=== PATIENT | male | born 1965 | race Caucasian/White ===

== ENCOUNTER 2022-08-17 15:15 | Outpatient (CLI) | payer BC, OTHER | END 2022-08-17 15:16 | disposition home or self-care (01) | LOC: CSHMRI 15:15 | PROVIDERS: ATTEND Orthopaedic Surgery | DX: M75.81 Other shoulder lesions, right shoulder (principal); S43.431A Superior glenoid labrum lesion of right shoulder, initial encounter ==

== ENCOUNTER 2024-06-17 09:00 | Outpatient (CLI) | payer BC, OTHER | END 2024-06-17 09:01 | disposition home or self-care (01) | LOC: CSHCT 09:00 | PROVIDERS: ATTEND Orthopaedic Surgery | DX: Z01.818 Encounter for other preprocedural examination (principal); M17.0 Bilateral primary osteoarthritis of knee ==